=== PATIENT | female | born 1945 | race Caucasian/White ===

== ENCOUNTER 2021-11-06 12:52 | Emergency (ER) | payer MEDICARE, OTHER ==
[~2021-11-06] VITALS: Ht 167.6 cm; Wt 100.0 kg
[2021-11-06 13:41] LABS: EOSINOPHILS # (AUTO) 0.1 X10'3 (0-0.9); EOSINOPHILS % (AUTO) 0.7 % (0-6)
[2021-11-06 13:42] LABS: BASOPHILS # (AUTO) 0.1 X10'3 (0-0.2); LYMPHOCYTES # (AUTO) 1.3 X10'3 (1.1-4.8)
[2021-11-06 13:49] LABS: HEMATOCRIT 36.4 % (35.0-45.0); MEAN CORPUSCULAR HEMOGLOBIN 27.8 PG (27.0-31.0)
[2021-11-06 13:51] LABS: BASOPHILS % (AUTO) 0.4 % (0-1); HEMOGLOBIN 11.5 g/dl (12.0-16.0); LYMPHOCYTES % (AUTO) 7.4 % (21-51); MEAN CORPUSCULAR HGB CONC 31.6 g/dL (33.0-36.5); MEAN PLATELET VOLUME 6.4 FL (7.4-10.4); MONOCYTES # (AUTO) 0.9 X10'3 (0-0.9); MONOCYTES % (AUTO) 5.1 % (2-12); NEUTROPHILS # (AUTO) 14.6 X10'3 (1.8-7.7); NEUTROPHILS % (AUTO) 86.4 % (42-75); PLATELET COUNT 456 X10'3 (140-440); RED BLOOD COUNT 4.14 X10'6 (4.20-5.60); RED CELL DISTRIBUTION WIDTH 17.9 % (11.5-14.5); WHITE BLOOD COUNT 16.9 X10'3 (4.5-11.0)
[2021-11-06 13:58] LABS: ANION GAP 8 (8-16); CHLORIDE 102 MMOL/L (99-107); GLUCOSE 144 MG/DL (70-104); POTASSIUM 4.4 MMOL/L (3.5-5.1); SODIUM 134 MMOL/L (135-145); TOTAL CARBON DIOXIDE 23.6 MMOL/L (24-32)
[2021-11-06 13:59] LABS: ALANINE AMINOTRANSFERASE 9 U/L (12-78); ALBUMIN 3.4 G/DL (3.4-5.0); ALBUMIN/GLOBULIN RATIO 0.7 (1.1-1.5); ALKALINE PHOSPHATASE 125 IU/L (46-116); ASPARTATE AMINO TRANSFERASE 23 U/L (10-37); BILIRUBIN,TOTAL 0.8 MG/DL (0.1-1.0); BLOOD UREA NITROGEN 13 MG/DL (7-18); BUN/CREATININE RATIO 10.7 (6.6-38.0); CALCIUM 9.6 MG/DL (8.5-10.1); CREATININE 1.22 MG/DL (0.40-0.90); LIPASE 101 U/L (73-393); TOTAL PROTEIN 8.1 G/DL (6.4-8.2); eGFR 43 ML/MIN
[2021-11-06] MEDS ORDERED: morphine 4 MG/ML inj SYRINge IV ONE (14:05)
[2021-11-06] MEDS ORDERED: ondansetron/PF 4mg/2ml inj IV ONE (14:05)
[2021-11-06 15:12] LABS: CLARITY,URINE TURBID (Clear); COLOR,URINE RED (Yellow)
[2021-11-06 15:34] LABS: RBC,URINE TNTC /HPF (0-2)
[2021-11-06 15:37] LABS: WBC,URINE TNTC /HPF (0-4)
[2021-11-06 15:38] LABS: BACTERIA,URINE FEW /HPF (Neg); SQUAMOUS EPITHELIAL CELL,UR FEW /LPF (FEW)
[2021-11-06 15:39] LABS: TRANSITIONAL EPI CELLS,URINE FEW /HPF
[2021-11-06 15:41] LABS: UA COLLECTION TYPE STRAIGHT CATH
[2021-11-06] MEDS ORDERED: cefTRIAXone 1g/NS 100ml IVPB 100 ML IV ONE (16:30)
[2021-11-06] MEDS ORDERED: CIPR-202 PO ×2 (18:05)
[2021-11-06 18:39] VITALS: BP 110/50
--- NOTE | 2021-11-06 22:35 | NUR ---
patient tested positive for gram negative rods . She was covered via ABX in our ED and prescribed ABX. Lilibeth Schmitt was notified.
[2021-11-08] MEDS ORDERED: FOLI1TAB27 PO (14:44)
[2021-11-08] MEDS ORDERED: CLON1TAB13 PO (14:44)
[2021-11-08] MEDS ORDERED: SENN8.6T19 PO (14:44)
[2021-11-08] MEDS ORDERED: DICY10CA88 PO (14:44)
[2021-11-08] MEDS ORDERED: ATOR40TA72 PO (14:44)
[2021-11-08] MEDS ORDERED: TRAZ-251 PO (14:44)
[2021-11-08] MEDS ORDERED: FURO20TA4 PO (14:44)
[2021-11-08] MEDS ORDERED: METF-438 PO (14:44)
[2021-11-08] MEDS ORDERED: POTA-192 PO (14:44)
[2021-11-08] MEDS ORDERED: BUPR-297 PO (14:44)
[2021-11-08] MEDS ORDERED: LISI10TA27 PO (14:44)
[2021-11-08] MEDS ORDERED: SERT-434 PO (14:44)
[2021-11-08] MEDS ORDERED: GABA-530 PO (14:44)
[2021-11-08] MEDS ORDERED: HYDR-3686 PO (14:44)
[2021-11-08] MEDS ORDERED: TRAM50TA2 PO (14:44)
[2021-11-08] MEDS ORDERED: LANTUS SQ (15:04)
[2021-11-08] MEDS ORDERED: ASPI-611 PO (15:04)
[2021-11-08] MEDS ORDERED: CYAN-51 PO (15:04)
[2021-11-08] MEDS ORDERED: MAGN400T56 PO (15:04)
[2021-11-08] MEDS ORDERED: CHOL100040 PO (15:04)
== END 2021-11-06 21:35 | disposition home or self-care (01) ==
LOC: ER 12:52
DX: N39.0 Urinary tract infection, site not specified (principal); R31.9 Hematuria, unspecified; N13.30 Unspecified hydronephrosis; I10 Essential (primary) hypertension; J43.9 Emphysema, unspecified; F31.9 Bipolar disorder, unspecified; E11.9 Type 2 diabetes mellitus without complications; Z79.899 Other long term (current) drug therapy
CPT/HCPCS: 36415; 71045; 74176; 80053; 81001; 83605; 83690; 84145; 85025; 87040; 87077; 87088; 87186; 93005; 96374; 96375; 99285; J0696; J2270; J2405

== ENCOUNTER 2021-12-11 06:35 | Emergency (ER) | payer OTHER ==
[~2021-12-11] VITALS: Ht 167.6 cm; Wt 100.0 kg
[~2021-12-11 06:35] MED LIST: ASPI-611 PO; ATOR40TA72 PO; BUPR-297 PO; CHOL100040 PO; CLON0.1T2 PO; CLON1TAB13 PO; CYAN-51 PO; DICY10CA88 PO; FOLI1TAB27 PO; GABA-530 PO; HYDR-3686 PO; LANTUS SQ; LEVO250T43 PO; LISI10TA27 PO; MAGN400T56 PO; POTA-192 PO; QUET100T34 PO; SENN8.6T19 PO; SERT-434 PO
[2021-12-11 06:36] VITALS: BP 152/59
--- NOTE | 2021-12-11 07:45 | NUR ---
[facility] states they will come get patient and take her back to [facility] around [id number]
== END 2021-12-11 09:56 ==
LOC: ER 06:35
DX: S00.03XA Contusion of scalp, initial encounter (principal); E78.00 Pure hypercholesterolemia, unspecified; I10 Essential (primary) hypertension; J43.9 Emphysema, unspecified; E11.9 Type 2 diabetes mellitus without complications; Z79.82 Long term (current) use of aspirin; Z79.2 Long term (current) use of antibiotics; Z79.899 Other long term (current) drug therapy; W18.30XA Fall on same level, unspecified, initial encounter; Z91.81 History of falling; Y93.01 Activity, walking, marching and hiking; Y92.89 Other specified places as the place of occurrence of the external cause; Y99.8 Other external cause status
CPT/HCPCS: 99284; J7030

== ENCOUNTER 2022-03-16 17:23 | Emergency (ER) | payer OTHER ==
[~2022-03-16] VITALS: Ht 167.6 cm; Wt 81.8 kg
[~2022-03-16 17:23] MED LIST changes: -LEVO250T43 PO; +LEVO250T74 PO
[2022-03-16] MEDS ORDERED: ibuprofen 200mg tablet PO ONE (18:00)
[2022-03-16 18:07] VITALS: BP 160/63
== END 2022-03-16 19:34 | disposition home or self-care (01) ==
LOC: ER 17:24
DX: S01.01XA Laceration without foreign body of scalp, initial encounter (principal); R51.9 Headache, unspecified; E78.00 Pure hypercholesterolemia, unspecified; I10 Essential (primary) hypertension; J43.9 Emphysema, unspecified; E11.9 Type 2 diabetes mellitus without complications; F32.A Depression, unspecified; Z87.01 Personal history of pneumonia (recurrent); Z79.82 Long term (current) use of aspirin; Z79.4 Long term (current) use of insulin; Z79.899 Other long term (current) drug therapy; W19.XXXA Unspecified fall, initial encounter; Y93.89 Activity, other specified; Y92.89 Other specified places as the place of occurrence of the external cause; Y99.8 Other external cause status
CPT/HCPCS: 70450; 99284; J7030; A6449